=== PATIENT | female | born 1990 | race Caucasian/White ===

== ENCOUNTER 2024-11-22 12:32 | Emergency (ER) | payer SELFPAY ==
[2024-11-22] MEDS ORDERED: Ketorolac Tromethamine 30 MG (1 mL) VIAL ONE (15:50)
[2024-11-22] MEDS ORDERED: Bicillin LA 1.2 MILLION UNITS/2 ML SYRINGE ONE (15:50)
[2024-11-22] MEDS ORDERED: Dexamethasone 10 MG/ML VIAL ONE (15:50)
== END 2024-11-22 16:21 | disposition home or self-care (01) ==
LOC: ERS 12:32
DX: J02.0 Streptococcal pharyngitis (principal); F17.210 Nicotine dependence, cigarettes, uncomplicated
CPT/HCPCS: 87428; 87430; 96372; 99282; J0561; J1100; J1885

== ENCOUNTER 2025-01-18 18:53 | Emergency (ER) | payer SELFPAY | END 2025-01-18 21:26 | disposition home or self-care (01) | LOC: ERS 18:53 | DX: H60.91 Unspecified otitis externa, right ear (principal); F17.210 Nicotine dependence, cigarettes, uncomplicated | CPT/HCPCS: 99282 ==